=== PATIENT | male | born 1985 | race American Indian/Alaskan Native ===

== ENCOUNTER 2017-08-29 14:35 | Inpatient (IN) | payer MEDICARE, MEDICAID ==
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
[2017-08-29] MEDS ORDERED: Sodium Chloride 0.9% 1,000 ML IV SCH (16:00)
[2017-08-29] MEDS ORDERED: Sodium Chloride 0.9% 10 ML Syringe FLUSH PRN (16:55)
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
[2017-08-29] MEDS ORDERED: LORazepam 2 MG/ML SDV IM PRN (17:39)
[2017-08-29] MEDS ORDERED: LORazepam 1 MG Tab PO PRN (17:39)
[2017-08-29] MEDS ORDERED: LORazepam 2 MG/ML SDV IV PRN (17:39)
[2017-08-29] MEDS: Sodium Chloride 0.9% 1,000 ML IV SCH (18:35)
[2017-08-29] MEDS ORDERED: ALPRAZolam 0.25 MG Tab PO ONE (18:51)
[2017-08-29] MEDS: LORazepam 1 MG Tab PO PRN (21:40)
[2017-08-30] MEDS: LORazepam 1 MG Tab PO PRN ×3 (01:34→08:40)
[2017-08-30] MEDS: Sodium Chloride 0.9% 1,000 ML IV SCH (01:43)
[2017-08-30] MEDS ORDERED: Ondansetron 4 MG/2 ML SDV IVPUSH PRN (05:25)
--- NOTE | 2017-08-30 08:35 | PCM.PN ---
- General Info Date of Service: 08/30/17 Functional Status: Reports: Pain Controlled - Review of Systems General: Reports: No Symptoms HEENT: Reports: No Symptoms Pulmonary: Reports: No Symptoms Cardiovascular: Reports: No Symptoms Gastrointestinal: Reports: No Symptoms Genitourinary: Reports: No Symptoms Musculoskeletal: Reports: No Symptoms Skin: Reports: No Symptoms Neurological: Reports: No Symptoms Psychiatric: Reports: No Symptoms - Patient Data Vitals - Most Recent: Last Vital Signs Temp 97.8 F 08/30/17 08:00 Pulse 81 08/30/17 08:00 Resp 16 08/30/17 08:00 BP 117/53 L 08/30/17 08:00 Pulse Ox 99 08/30/17 08:00 Weight - Most Recent: 275 lb 14.663 oz I&O - Last 24 Hours: Intake & Output 08/29/17 08/30/17 08/30/17 22:59 06:59 14:59 Intake Total 1010 1865 Output Total 1050 Balance 1010 815 Lab Results Last 24 Hours: Laboratory Results - last 24 hr 08/29/17 08/29/17 08/29/17 Range/Units 14:59 14:59 14:59 WBC 6.8 (4.5-11.0) K/uL RBC 5.48 (4.30-5.90) M/uL Hgb 16.8 H (12.0-15.0) g/dL Hct 47.0 (40.0-54.0) % MCV 86 (80-98) fL MCH 31 (27-31) pg MCHC 36 (32-36) % Plt Count 242 (150-400) K/uL Neut % (Auto) 51 (36-66) % Lymph % (Auto) 43 (24-44) % [place] % (Auto) 5 (2-6) % Eos % (Auto) 0 L (2-4) % Baso % (Auto) 1 (0-1) % Sodium 131 L (140-148) mmol/L Potassium 4.1 (3.6-5.2) mmol/L Chloride 91 L (100-108) mmol/L Carbon Dioxide 22 (21-32) mmol/L Anion Gap 22.1 H (5.0-14.0) mmol/L BUN 30 H (7-18) mg/dL Creatinine 1.2 (0.8-1.3) mg/dL Est Cr Clr Drug Dosing 100.80 mL/min Estimated GFR (MDRD) > 60 (>60) Glucose 117 H (74-106) mg/dL Calcium 8.0 L (8.5-10.1) mg/dL Total Bilirubin 0.8 (0.2-1.0) mg/dL AST 84 H (15-37) U/L ALT 78 (12-78) U/L Alkaline Phosphatase 106 (46-116) U/L Total Protein 7.8 (6.4-8.2) g/dL Albumin 3.9 (3.4-5.0) g/dL Globulin 3.9 H (2.3-3.5) g/dL Albumin/Globulin Ratio 1.0 L (1.2-2.2) Ethyl Alcohol 471 mg/dL Med Orders - Current: Current Medications Sodium Chloride (Normal Saline) 1,000 mls @ 125 mls/hr IV ASDIRECTED [facility] Last Admin: 08/30/17 01:43 Dose: 125 mls/hr Lisinopril (Prinivil) 20 mg PO DAILY [facility] Lorazepam (Ativan) 0 mg PO ASDIRECTED PRN; Protocol PRN Reason: ETOH WITHDRAWAL Lorazepam (Ativan) 0 mg IV ASDIRECTED PRN; Protocol PRN Reason: ETOH WITHDRAWAL Lorazepam (Ativan) 0 mg IM ASDIRECTED PRN; Protocol PRN Reason: ETOH WITHDRAWAL Lorazepam (Ativan) 1 mg PO Q4H PRN PRN Reason: Anxiety Last Admin: 08/30/17 04:31 Dose: 1 mg Metoprolol Succinate (Toprol Xl) 200 mg PO DAILY [facility] Ondansetron HCl (Zofran) 4 mg IVPUSH Q4H PRN PRN Reason: Nausea/Vomiting Last Admin: 08/30/17 05:37 Dose: 4 mg Sodium Chloride (Saline Flush) 10 ml FLUSH ASDIRECTED PRN PRN Reason: Keep Vein Open Discontinued Medications Alprazolam (Xanax) 0.5 mg PO ONETIME ONE Stop: 08/29/17 18:52 Last Admin: 08/29/17 19:10 Dose: 0.5 mg Sodium Chloride (Normal Saline) 1,000 mls @ 500 mls/hr IV ASDIRECTED [facility] Stop: 08/29/17 17:59 Last Admin: 08/29/17 16:01 Dose: 500 mls/hr - Exam General: Alert, Oriented Neck: Supple Lungs: Clear to Auscultation, Normal Respiratory Effort Cardiovascular: Regular Rate, Regular Rhythm GI/Abdominal Exam: Normal Bowel Sounds, Soft, Non-Tender, No Organomegaly, No Distention, No Abnormal Bruit, No Mass, Pelvis Stable Back Exam: Normal Inspection, Full Range of Motion Extremities: Normal Inspection, Normal Range of Motion, Non-Tender, No Pedal Edema, Normal Capillary Refill Peripheral Pulses: 1+: Radial (L), Radial (R) Skin: Warm, Dry, Intact Neurological: No New Focal Deficit Psy/Mental Status: Alert, Normal Affect, Normal Mood - Problem List Review Problem List Initiated/Reviewed/Updated: Yes - My Orders Last 24 Hours: My Active Orders 08/29/17 16:55 Height and Weight [RC] DAILY Up to Chair [RC] QID Sodium Chloride 0.9% [Saline Flush] 10 ml FLUSH ASDIRECTED PRN Peripheral IV Insertion Adult [OM.PC] Routine Resuscitation Status Routine 08/29/17 16:56 Patient Status [ADT] Routine Oxygen Therapy [RC] PRN VTE/DVT Education [RC] Per Unit Routine Vital Signs [RC] Q4H 08/29/17 17:00 Intake and Output [RC] QSHIFT 08/29/17 17:39 LORazepam [Ativan] 0 mg IM ASDIRECTED PRN LORazepam [Ativan] 0 mg IV ASDIRECTED PRN LORazepam [Ativan] 0 mg PO ASDIRECTED PRN 08/29/17 17:45 Sodium Chloride 0.9% [Normal Saline] 1,000 ml IV ASDIRECTED 08/29/17 21:30 LORazepam [Ativan] 1 mg PO Q4H PRN 08/30/17 05:25 Ondansetron [Zofran] 4 mg IVPUSH Q4H PRN 08/30/17 09:00 Lisinopril [Prinivil] 20 mg PO DAILY Metoprolol Succinate [Toprol XL] 200 mg PO DAILY 08/30/17 Dinner Regular Diet [DIET] - Plan Plan:: Assessment/Plan: #1. Alcoholism: Stable at present so will discharge home and give him 2mg Ativan (0.5 mg #4). He refuses to go to [facility]. #2. Morbid obesity: Will encourage a change in diet and exercise.
--- NOTE | 2017-08-30 08:39 | PCM.DCSUM1 ---
Discharge Summary - Hospital Course Brief History: Was told by the family he started drinking 5 days ago and had not consumed alcohol for 1 year prior to the recent binge. - Discharge Data Discharge Date: 08/30/17 Discharge Disposition: Home, Self-Care 01 Condition: Good - Patient Summary/Data Hospital Course: Admitted over the night in the ICU he said he had withdrawals which was relieved with Ativan. Upon admission his alc. level was 471. He will be discharged home. 4 0.5 mg Ativan was given which he can take through the rest of the day if needed. - Patient Instructions Diet: Heart Healthy Diet - Discharge Plan Home Medications: Home Meds Lisinopril 20 mg PO DAILY 01/01/15 [History] Aspirin/Calcium Carbonate/Mag [Aspirin Buffered 325 mg Tab] 325 mg PO DAILY [History] Metoprolol Succinate 200 mg PO DAILY 08/29/17 [History] Forms: ED Department Discharge Referrals: Kenny Pack Sr, MD [Primary Care Provider] - - Discharge Summary/Plan Comment Discharge Summary/Plan Comment: Assessment/Plan: #1. Alcoholism: Stable at present so will discharge home and give him 2mg Ativan (0.5 mg #4). He refuses to go to [facility]. He is to stop drinking as he understands the dangers. #2. Morbid obesity: Will encourage a change in diet and exercise. - General Info Functional Status: Reports: Pain Controlled - Review of Systems General: Reports: No Symptoms HEENT: Reports: No Symptoms Pulmonary: Reports: No Symptoms Cardiovascular: Reports: No Symptoms Gastrointestinal: Reports: No Symptoms Genitourinary: Reports: No Symptoms Musculoskeletal: Reports: No Symptoms Skin: Reports: No Symptoms Neurological: Reports: No Symptoms Psychiatric: Reports: No Symptoms - Patient Data Vitals - Most Recent: Last Vital Signs Temp 97.8 F 08/30/17 08:00 Pulse 81 08/30/17 08:00 Resp 16 08/30/17 08:00 BP 117/53 L 08/30/17 08:00 Pulse Ox 99 08/30/17 08:00 Weight - Most Recent: 275 lb I&O - Last 24 hours: Intake & Output 08/29/17 08/30/17 08/30/17 22:59 06:59 14:59 Intake Total 1010 1865 Output Total 1050 Balance 1010 815 Lab Results - Last 24 hrs: Laboratory Results - last 24 hr 08/29/17 08/29/17 08/29/17 Range/Units 14:59 14:59 14:59 WBC 6.8 (4.5-11.0) K/uL RBC 5.48 (4.30-5.90) M/uL Hgb 16.8 H (12.0-15.0) g/dL Hct 47.0 (40.0-54.0) % MCV 86 (80-98) fL MCH 31 (27-31) pg MCHC 36 (32-36) % Plt Count 242 (150-400) K/uL Neut % (Auto) 51 (36-66) % Lymph % (Auto) 43 (24-44) % [place] % (Auto) 5 (2-6) % Eos % (Auto) 0 L (2-4) % Baso % (Auto) 1 (0-1) % Sodium 131 L (140-148) mmol/L Potassium 4.1 (3.6-5.2) mmol/L Chloride 91 L (100-108) mmol/L Carbon Dioxide 22 (21-32) mmol/L Anion Gap 22.1 H (5.0-14.0) mmol/L BUN 30 H (7-18) mg/dL Creatinine 1.2 (0.8-1.3) mg/dL Est Cr Clr Drug Dosing 100.80 mL/min Estimated GFR (MDRD) > 60 (>60) Glucose 117 H (74-106) mg/dL Calcium 8.0 L (8.5-10.1) mg/dL Total Bilirubin 0.8 (0.2-1.0) mg/dL AST 84 H (15-37) U/L ALT 78 (12-78) U/L Alkaline Phosphatase 106 (46-116) U/L Total Protein 7.8 (6.4-8.2) g/dL Albumin 3.9 (3.4-5.0) g/dL Globulin 3.9 H (2.3-3.5) g/dL Albumin/Globulin Ratio 1.0 L (1.2-2.2) Ethyl Alcohol 471 mg/dL Med Orders - Current: Current Medications Sodium Chloride (Normal Saline) 1,000 mls @ 125 mls/hr IV ASDIRECTED [facility] Last Admin: 08/30/17 01:43 Dose: 125 mls/hr Lisinopril (Prinivil) 20 mg PO DAILY [facility] Lorazepam (Ativan) 0 mg PO ASDIRECTED PRN; Protocol PRN Reason: ETOH WITHDRAWAL Lorazepam (Ativan) 0 mg IV ASDIRECTED PRN; Protocol PRN Reason: ETOH WITHDRAWAL Lorazepam (Ativan) 0 mg IM ASDIRECTED PRN; Protocol PRN Reason: ETOH WITHDRAWAL Lorazepam (Ativan) 1 mg PO Q4H PRN PRN Reason: Anxiety Last Admin: 08/30/17 04:31 Dose: 1 mg Metoprolol Succinate (Toprol Xl) 200 mg PO DAILY [facility] Ondansetron HCl (Zofran) 4 mg IVPUSH Q4H PRN PRN Reason: Nausea/Vomiting Last Admin: 08/30/17 05:37 Dose: 4 mg Sodium Chloride (Saline Flush) 10 ml FLUSH ASDIRECTED PRN PRN Reason: Keep Vein Open Discontinued Medications Alprazolam (Xanax) 0.5 mg PO ONETIME ONE Stop: 08/29/17 18:52 Last Admin: 08/29/17 19:10 Dose: 0.5 mg Sodium Chloride (Normal Saline) 1,000 mls @ 500 mls/hr IV ASDIRECTED [facility] Stop: 08/29/17 17:59 Last Admin: 08/29/17 16:01 Dose: 500 mls/hr - Exam General: Reports: Alert, Oriented HEENT: Reports: Pupils Equal, Pupils Reactive, EOMI, Mucous Membr. Moist/[place] Neck: Reports: Supple Lungs: Reports: Clear to Auscultation, Normal Respiratory Effort Cardiovascular: Reports: Regular Rate, Regular Rhythm GI/Abdominal Exam: Normal Bowel Sounds, Soft, Non-Tender, No Organomegaly, No Distention, No Abnormal Bruit, No Mass, Pelvis Stable Back Exam: Reports: Normal Inspection, Full Range of Motion Extremities: Normal Inspection, Normal Range of Motion, Non-Tender, No Pedal Edema, Normal Capillary Refill
[2017-08-30] MEDS: Metoprolol Succinate 50 MG Tab.ER PO SCH ×2 (08:40→08:42)
[2017-08-30 08:42] VITALS: BP_SYST 73
[2017-08-30] MEDS ORDERED: Lisinopril 20 MG Tab PO SCH (09:00)
[2017-08-30] MEDS ORDERED: Metoprolol Tartrate 50 MG Tab PO SCH (09:00)
== END 2017-08-30 09:15 | disposition home or self-care (01) | DRG 897 ==
LOC: JP.ED 14:35 → JP.ICU 16:56
PROVIDERS: ADMIT Internal Medicine; ATTEND Internal Medicine
DX: F10.229 Alcohol dependence with intoxication, unspecified (principal); F10.239 Alcohol dependence with withdrawal, unspecified; Y90.8 Blood alcohol level of 240 mg/100 ml or more; E66.01 Morbid (severe) obesity due to excess calories; Z68.38 Body mass index [BMI] 38.0-38.9, adult; Z91.018 Allergy to other foods; Z79.82 Long term (current) use of aspirin; Z79.899 Other long term (current) drug therapy
CPT/HCPCS: 36415; 80053; 85025; 96360; 99284; 99285; G0480; J7040; A9270-GY; J2405; J7030

== ENCOUNTER 2018-01-01 15:35 | Emergency (ER) | payer MEDICARE, MEDICAID ==
[2018-01-01 15:58] VITALS: BP 148/95
[2018-01-01] MEDS: Ondansetron 4 MG Tab.DIS PO ONE (16:07)
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
== END 2018-01-01 16:19 | disposition left against medical advice (07) ==
LOC: JP.ED 15:35
DX: F10.129 Alcohol abuse with intoxication, unspecified (principal); E66.9 Obesity, unspecified; F17.210 Nicotine dependence, cigarettes, uncomplicated; Z79.82 Long term (current) use of aspirin; I10 Essential (primary) hypertension; Z79.899 Other long term (current) drug therapy; Z91.018 Allergy to other foods
CPT/HCPCS: 99284; A9270

== ENCOUNTER 2018-07-02 00:46 | Emergency (ER) | payer MEDICARE, MEDICAID ==
[2018-07-02 00:59] VITALS: BP 139/79
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
== END 2018-07-02 07:52 | disposition home or self-care (01) ==
LOC: JP.ED 00:46
DX: F10.920 Alcohol use, unspecified with intoxication, uncomplicated (principal); I10 Essential (primary) hypertension; J45.909 Unspecified asthma, uncomplicated; K21.9 Gastro-esophageal reflux disease without esophagitis; F41.9 Anxiety disorder, unspecified; F32.9 Major depressive disorder, single episode, unspecified; Z79.899 Other long term (current) drug therapy; Y90.9 Presence of alcohol in blood, level not specified
CPT/HCPCS: 99283; 99284

== ENCOUNTER 2019-05-08 13:31 | Emergency (ER) | payer MEDICARE, MEDICAID ==
[2019-05-08] MEDS ORDERED: Sodium Chloride 0.9% 1,000 ML IV SCH (13:45)
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
[2019-05-08] MEDS ORDERED: Potassium Chloride 20 MEQ in Premix Bag 1 BAG IV ONE ×2 (14:27→15:10)
[2019-05-08] MEDS ORDERED: LORazepam 2 MG/ML SDV IVPUSH ONE (14:45)
[2019-05-08] MEDS ORDERED: Ondansetron 4 MG/2 ML SDV IVPUSH ONE (14:45)
[2019-05-08] MEDS ORDERED: Potassium Chloride 20 MEQ Tab.ER PO ONE (15:02)
[2019-05-08] MEDS ORDERED: LORazepam 1 MG Tab PO ONE (17:36)
[2019-05-08] MEDS ORDERED: Metoprolol Succinate 50 MG Tab.ER PO ONE (17:44)
[2019-05-08 17:54] VITALS: BP 115/71; PULSE 112
== END 2019-05-08 18:14 | disposition home or self-care (01) ==
LOC: JP.ED 13:31
DX: F10.10 Alcohol abuse, uncomplicated (principal); F19.10 Other psychoactive substance abuse, uncomplicated; E86.0 Dehydration; I10 Essential (primary) hypertension; J45.909 Unspecified asthma, uncomplicated; E66.9 Obesity, unspecified; Y90.1 Blood alcohol level of 20-39 mg/100 ml; Z79.82 Long term (current) use of aspirin; Z68.39 Body mass index [BMI] 39.0-39.9, adult; Z79.899 Other long term (current) drug therapy
CPT/HCPCS: 36415; 80053; 80305; 83735; 84443; 85025; 96365; 96366; 96375; 99285; A9270; G0480; J2060; J2405; J3480; J7030; 99284

== ENCOUNTER 2020-06-12 22:03 | Emergency (ER) | payer MEDICARE, MEDICAID | END 2020-06-12 23:00 | disposition left against medical advice (07) | LOC: JP.ED 22:03 | DX: Z53.21 Procedure and treatment not carried out due to patient leaving prior to being seen by health care provider (principal) ==

== ENCOUNTER 2020-06-13 00:10 | Emergency (ER) | payer MEDICARE, MEDICAID ==
[2020-06-13 00:44] VITALS: BP 131/89; PULSE 85
[2020-06-13] MEDS ORDERED: LORazepam 1 MG Tab PO ONE (00:48)
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
== END 2020-06-13 06:57 | disposition home or self-care (01) ==
LOC: JP.ED 00:10
DX: F10.129 Alcohol abuse with intoxication, unspecified (principal); Y90.8 Blood alcohol level of 240 mg/100 ml or more; I10 Essential (primary) hypertension; J45.909 Unspecified asthma, uncomplicated; E66.9 Obesity, unspecified; Z68.38 Body mass index [BMI] 38.0-38.9, adult; Z91.018 Allergy to other foods; Z79.82 Long term (current) use of aspirin; Z79.899 Other long term (current) drug therapy
CPT/HCPCS: 36415; 80053; 80305-QW; 80307; 85025; 99283; 99284; A9270-GY

== ENCOUNTER 2021-08-20 16:01 | Emergency (ER) | payer MEDICARE, MEDICAID ==
[2021-08-20 16:20] VITALS: BP 117/51; PULSE 122
[2021-08-20] MEDS ORDERED: Ondansetron 4 MG Tab.DIS PO ONE (16:26)
[2021-08-20] MEDS ORDERED: LORazepam 1 MG Tab PO ONE (17:11)
== END 2021-08-20 18:06 ==
LOC: JP.ED 16:01
DX: F19.90 Other psychoactive substance use, unspecified, uncomplicated (principal); K21.9 Gastro-esophageal reflux disease without esophagitis; E66.9 Obesity, unspecified; Z68.35 Body mass index [BMI] 35.0-35.9, adult; Z91.018 Allergy to other foods; Z79.82 Long term (current) use of aspirin; Z79.899 Other long term (current) drug therapy; Z20.822 Contact with and (suspected) exposure to COVID-19
CPT/HCPCS: 36415; 80048; 80305-QW; 80307; 85025; 99282; 99284; A9270-GY; Q0162; U0002

== ENCOUNTER 2022-01-21 15:00 | Emergency (ER) | payer MEDICARE, MEDICAID ==
[2022-01-21 15:13] VITALS: BP 122/99; PULSE 100
== END 2022-01-21 17:42 ==
LOC: JP.ED 15:00
DX: R33.9 Retention of urine, unspecified (principal); F19.10 Other psychoactive substance abuse, uncomplicated; F41.1 Generalized anxiety disorder; F10.10 Alcohol abuse, uncomplicated; N17.9 Acute kidney failure, unspecified; I10 Essential (primary) hypertension; F41.9 Anxiety disorder, unspecified; F32.A Depression, unspecified; K21.9 Gastro-esophageal reflux disease without esophagitis; Z79.899 Other long term (current) drug therapy; Z91.018 Allergy to other foods
CPT/HCPCS: 36415; 51702; 80048; 80305-QW; 81001; 85025; 99284

== ENCOUNTER 2022-01-23 18:41 | Emergency (ER) | payer MEDICARE, MEDICAID ==
[2022-01-23 19:53] LABS: ESTIMATED GFR 81 mL/min (>60)
[2022-01-23 20:03] VITALS: BP 166/113; PULSE 114
[2022-01-23] MEDS ORDERED: cefTRIAXone 1 GM in Sodium Chloride 0.9% 50 ML IV ONE (20:21)
[2022-01-23] MEDS ORDERED: Sodium Chloride 0.9% 1,000 ML IV SCH (20:30)
== END 2022-01-23 22:50 ==
LOC: JP.ED 18:41
DX: N39.0 Urinary tract infection, site not specified (principal); F17.210 Nicotine dependence, cigarettes, uncomplicated; E66.9 Obesity, unspecified; Z68.31 Body mass index [BMI] 31.0-31.9, adult; Z91.018 Allergy to other foods; Z79.899 Other long term (current) drug therapy; Z79.82 Long term (current) use of aspirin; Z86.16 Personal history of COVID-19
CPT/HCPCS: 36415; 80053; 80305; 81001; 83605; 85025; 96361; 96365; 99283; J0696; J7030

== ENCOUNTER 2022-01-26 03:04 | Emergency (ER) | payer MEDICARE, MEDICAID ==
[2022-01-26 03:17] VITALS: BP 148/112; PULSE 94
[2022-01-26 03:46] LABS: ESTIMATED GFR 90 mL/min (>60)
[2022-01-26] MEDS ORDERED: OLANZapine 5 MG Tab PO ONE (03:52)
== END 2022-01-26 05:33 | disposition other institution (70) ==
LOC: JP.ED 03:04
DX: F41.1 Generalized anxiety disorder (principal); F19.10 Other psychoactive substance abuse, uncomplicated; R44.0 Auditory hallucinations; R44.1 Visual hallucinations; I10 Essential (primary) hypertension; K21.9 Gastro-esophageal reflux disease without esophagitis; E66.9 Obesity, unspecified; Z68.34 Body mass index [BMI] 34.0-34.9, adult; Z91.048 Other nonmedicinal substance allergy status; Z79.82 Long term (current) use of aspirin; Z86.16 Personal history of COVID-19
CPT/HCPCS: 36415; 80053; 80305; 81003; 85027; 99285; A9270

== ENCOUNTER 2022-01-26 06:29 | Emergency (ER) | payer MEDICARE, MEDICAID ==
[2022-01-26] MEDS ORDERED: Ketamine 500 MG/5 ML MDV IM ONE (08:14)
[2022-01-26 15:04] VITALS: BP 141/85; PULSE 89
== END 2022-01-26 16:05 ==
LOC: JP.ED 06:29
DX: R44.0 Auditory hallucinations (principal); R44.1 Visual hallucinations; F41.1 Generalized anxiety disorder; F19.10 Other psychoactive substance abuse, uncomplicated; I10 Essential (primary) hypertension; E66.9 Obesity, unspecified; Z91.018 Allergy to other foods; Z86.16 Personal history of COVID-19; Z79.82 Long term (current) use of aspirin; Z79.899 Other long term (current) drug therapy; Z68.34 Body mass index [BMI] 34.0-34.9, adult
CPT/HCPCS: 96372; 99284

== ENCOUNTER 2023-02-02 02:58 | Emergency (ER) | payer MEDICARE, MEDICAID ==
[2023-02-02 03:04] VITALS: BP 128/72; PULSE 62
== END 2023-02-02 09:57 | disposition home or self-care (01) ==
LOC: JP.ED 02:58
DX: K04.7 Periapical abscess without sinus (principal); E11.9 Type 2 diabetes mellitus without complications; F17.210 Nicotine dependence, cigarettes, uncomplicated; Z86.16 Personal history of COVID-19; Z91.018 Allergy to other foods; Z79.899 Other long term (current) drug therapy; Z79.82 Long term (current) use of aspirin; Z79.84 Long term (current) use of oral hypoglycemic drugs
CPT/HCPCS: 99283; 99284